=== PATIENT | male | born 2000 | race Caucasian/White ===

== ENCOUNTER 2023-12-18 22:42 | Emergency (ER) | payer OTHER, SELFPAY ==
[2023-12-19] MEDS ORDERED: Bupivacaine 0.25% 10 ML VIAL ONE (01:12)
== END 2023-12-18 23:08 ==
LOC: EEVIPCON 22:42 → ERS 22:42
DX: Z02.89 Encounter for other administrative examinations (principal)
CPT/HCPCS: 99282

== ENCOUNTER 2023-12-19 00:54 | Emergency (ER) | payer OTHER, SELFPAY | END 2023-12-19 02:13 | LOC: ERS 00:54 | DX: S61.212A Laceration without foreign body of right middle finger without damage to nail, initial encounter (principal); K21.9 Gastro-esophageal reflux disease without esophagitis; K46.9 Unspecified abdominal hernia without obstruction or gangrene; F17.290 Nicotine dependence, other tobacco product, uncomplicated; X58.XXXA Exposure to other specified factors, initial encounter; Z55.6 Problems related to health literacy | CPT/HCPCS: 12001 ==